=== PATIENT | male | born 1975 | race Caucasian/White ===

== ENCOUNTER 2018-02-26 08:36 | Outpatient (CLI) | payer MEDICARE ==
--- NOTE | 2018-02-26 16:58 | CT Report ---
Reason: OCD, ANXIETY Procedure Date: 02/26/2018 Accession Number: [id number] / [id number] Procedure: CT - Head W/O CPT Code: FULL RESULT: CT HEAD WITHOUT CONTRAST INDICATION: 42-year-old male with obsessive compulsive disorder and anxiety. TECHNIQUE: Sequential 5 mm axial images were obtained through the brain. In accordance with CT protocol optimization, one or more of the following dose reduction techniques were utilized for this exam: automated exposure control, adjustment of mA and/or KV based on patient size, or use of iterative reconstructive technique. COMPARISON: None. FINDINGS: There is a relatively large (4.2 cm maximal AP by 8.8 cm maximal transverse and 6.3 cm maximal craniocaudad) retrocerebellar, extra-axial fluid collection, in the posterior fossa. There is no communication with the fourth ventricle to suggest this represents a Dandy-Walker malformation. This most likely represents a large, arachnoid cyst. There appears to be mass effect on the underlying vermis and cerebellum. The brainstem is displaced anteriorly with effacement of the prepontine cistern. In addition, the vermis has a flattened appearance on the sagittal reformations (see image 16 of series 7). However, the fourth ventricle is widely patent. There is mild third/lateral ventriculomegaly. The lateral ventricles have a colpocephalic configuration. The ventriculomegaly does not appear to represent hydrocephalus. Attenuation of cortex and white matter appears normal throughout. No intracranial hemorrhage. The skull and skull base appear intact. Middle ear cavities and mastoid air cells appear clear. The imaged paranasal sinuses appear clear. IMPRESSION: 1. Large, retrocerebellar, midline, posterior fossa cystic lesion, as described. There is no communication with the fourth ventricle to suggest this represents a Dandy-Walker malformation. This most likely represents an arachnoid cyst. It is causing mass effect on the cerebellum and vermis. The clinical significance of this cyst is unclear. 2. There is at least mild prominence of the third and lateral ventricles. The enlargement is most prominent in the distribution of the atria, posterior horns and posterior bodies of the lateral ventricles. The ventriculomegaly has a colpocephalic configuration. This does not appear to represent hydrocephalus. 3. Otherwise, unremarkable, unenhanced head CT. No evidence of hemorrhage or other acute intracranial pathology.
== END 2018-02-26 08:37 | disposition home or self-care (01) ==
LOC: DI 08:36
PROVIDERS: ATTEND Internal Medicine
DX: G93.0 Cerebral cysts (principal); G93.89 Other specified disorders of brain; R56.9 Unspecified convulsions; F42.9 Obsessive-compulsive disorder, unspecified; F41.1 Generalized anxiety disorder; R41.4 Neurologic neglect syndrome
CPT/HCPCS: 70450